=== PATIENT | male | born 1945 | race Caucasian/White ===

== ENCOUNTER 2025-05-30 08:58 | Inpatient (IN) | payer OTHER, MEDICARE ==
[~2025-05-30] VITALS: Ht 182.9 cm; Wt 89.1 kg
--- NOTE | 2025-05-30 09:40 | ED.PDOC ---
Musculoskeletal HPI Comments 79 y/o M, presents to the ED for CC of right knee pain. Patient states, he has been experiencing right knee pain with associated swelling x4days. Patient reports, to have a prior right knee injury in the 1979' however, has never had symptoms up until now. Patient relays, that he has been unable to bear weight onto his right extremity d/t pain. Patient denies trauma, injury, fall, fever, numbness, or tingling. No other symptoms or modifying factors are present at this time. Chief Complaint: Lower Extremity Time Seen by MD: 09:30 Reviewed Notes: Nurses Notes, Medications, Allergies Allergies: Coded Allergies: NO KNOWN ALLERGIES (Unverified , 05/30/25) Information Source: Patient Mode of Arrival: Wheelchair Location: Right Extremity Location: Knee Timing: Days Prehospital treatment: None Severity: Moderate Able to Move Extremity: Yes Bear Weight: No Pain: Moderate Mechanism: Spontaneous Circumstances: Spontaneous Onset of Symptoms: Spontaneous Symptoms: Swelling, Pain DVT Risk Factors: NONE Last Tetanus: Unknown Associated signs and symptoms: Knee pain Past Medical History PAST MEDICAL HISTORY: Cancer Surgical History (Other): colostomy Family History Family History: Unknown Social History Smoker: Non-Smoker Alcohol: Denies ETOH Use Drugs: Denies Drug Use Lives In: Home Constitutional: denies: chills, diaphoresis, fatigue, fever, malaise, sweats, weakness, others EENTM: denies: blurred vision, double vision, ear bleeding, ear discharge, ear drainage, ear pain, ear ringing, eye pain, eye redness, hearing loss, mouth pain, mouth swelling, nasal discharge, nose bleeding, nose congestion, nose pain, photophobia, tearing, throat pain, throat swelling, voice changes, others Respiratory: denies: cough, hemoptysis, orthopnea, SOB at rest, shortness of breath, SOB with excertion, stridor, wheezing, others Cardiovascular: denies: chest pain, dizzy spells, diaphoresis, Dyspnea on exertion, edema, irregular heart beat, left arm pain, lightheadedness, palpitations, PND, syncope, others Gastrointestinal: denies: abdomen distended, abdominal pain, blood streaked bowels, constipated, diarrhea, dysphagia, difficulty swallowing, hematemesis, melena, nausea, poor appetite, poor fluid intake, rectal bleeding, rectal pain, vomiting, others Genitourinary: denies: burning, dysuria, flank pain, frequency, hematuria, incontinence, penile discharge, penile sore, pain, testicle pain, testicle swelling, urgency, others Neurological: denies: dizziness, fainting, headache, left sided numbness, left sided weakness, numbness, paresthesia, pre-existing deficit, right sided numbness, right sided weakness, seizure, speech problems, tingling, tremors, weakness, others Musculoskeletal: reports: others (right knee pain/right knee swelling); denies: back pain, gout, joint pain, joint swelling, muscle pain, muscle stiffness, neck pain Integumetry: denies: bruises, change in color, change in hair/nails, dryness, laceration, lesions, lumps, rash, wounds, others Allergic/Immunocompromised: denies: Difficulty Healing, Frequent Infections, Hives, Itching, others Hematologic/Lymphatic: denies: anemia, blood clots, easy bleeding, easy bruising, swollen glands, others Endocrine: denies: excessive hunger, excessive sweating, excessive thirst, excessive urination, flushing, intolerance to cold, intolerance to heat, unexplained weight gain, unexplained weight loss, others Psychiatric: denies: anxiety, bipolar disorder, depression, hopeless, panic disorder, schizophrenia, sleepless, suicidal, others All Other Systems: Reviewed and Negative Physical Exam General Appearance: Moderate Distress HEENT: Normal ENT Inspection, Pharynx Normal, TMs Normal Neck: Full Range of Motion, Non-Tender, Normal, Normal Inspection Respiratory: Chest Non-Tender, Lungs Clear, No Accessory Muscle Use, No Respiratory Distress, Normal Breath Sounds Cardiovascular: No Edema, No JVD, No Murmur, No Gallop, Normal Peripheral Pulses, Regular Rate/Rhythm Breast Exam: Deferred Gastrointestinal: No Organomegaly, Non Tender, No Pulsatile Mass, Normal Bowel Sounds, Soft Genitalia: Deferred Pelvic: Deferred Rectal: Deferred Extremities: No calf tenderness, No pedal edema, Swelling (Right knee) Musculoskeletal : Apperance: Normal Neurologic: Alert, No Motor Deficits, No Sensory Deficits Cerebellar Function: NOT DONE Reflexes: NOT DONE Skin: Dry, Normal Color, Warm Peripheral Pulses: 3+ Radial (R), 3+ Radial (L) Lymphatic: No Adenopathy Was a procedure done? Was a procedure done?: No Differential Diagnosis EXT Differential Diagnosis: Cellulitis, Fracture, Sprain, Dislocation X-Ray, Labs, Meds, VS Vital Signs Date Time Temp Pulse Resp B/P (MAP) Pulse Ox O2 Delivery O2 Flow Rate FiO2 05/30/25 13:05 97.9 66 16 131/54 (79) 98 97.9 05/30/25 13:05 66 16 98 Room Air 05/30/25 08:59 97.7 87 18 144/75 98 97.7 Lab Test 05/30/25 10:09 05/30/25 09:41 Range/Units Urine Color Yellow Yellow Urine Clarity Turbid H Clear Urine pH 5.5 5.0-9.0 Urine Specific [place] 1.030 1.001-1.035 Urine Protein 1+ H Negative Urine Ketones Trace Negative Urine Blood Negative Negative /uL Urine Nitrite Negative Negative Urine Bilirubin 1+ Negative Urine Urobilinogen 2 H Negative mg/dL Urine Leukocyte Esterase Negative Negative /uL Urine RBC 3 0 - 3 /hpf Urine Microscopic WBC 7 H 0-3 /HPF Urine Squamous Epithelial Cells Few <5 /hpf Urine Bacteria Few H None Seen /hpf Urine Hyaline Casts Many 0 - 2 /lpf Urine Mucus Few None Seen Urine Glucose Trace Normal mg/dL White Blood Count 10.5 4.4-10.8 10^3/uL Red Blood Count 4.05 L 4.5-5.90 10^6/uL Hemoglobin 13.2 L 13.5-17.5 g/dL Hematocrit 37.7 L 41.0-53.0 % Mean Corpuscular Volume 93.2 80.0-100.0 fL Mean Corpuscular Hemoglobin 32.5 H 28.0-32.0 pg Mean Corpuscular Hemoglobin Concent 34.9 32.0-36.0 g/dL Red Cell Distribution Width 13.4 11.8-14.3 % Platelet Count 252 140-450 10^3/uL Mean Platelet Volume 8.7 6.9-10.8 fL Neutrophils (%) (Auto) 77.7 37.0-80.0 % Lymphocytes (%) (Auto) 8.8 L 10.0-50.0 % Monocytes (%) (Auto) 12.9 H 0.0-12.0 % Eosinophils (%) (Auto) 0.3 0.0-7.0 % Basophils (%) (Auto) 0.3 0.0-2.0 % Neutrophils # (Auto) 8.2 1.6-8.6 10 ^3/uL Lymphocytes # (Auto) 0.9 0.4-5.4 10 ^3/uL Monocytes # (Auto) 1.3 0-1.3 10 ^3/uL Eosinophils # (Auto) 0 0-0.8 10 ^3/uL Basophils # (Auto) 0 0-0.2 10 ^3/uL Nucleated Red Blood Cells 0.0 % Sodium Level 137 136-145 mmol/L Potassium Level 3.3 L 3.5-5.1 mmol/L Chloride Level 107 98-107 mmol/L Carbon Dioxide Level 21 20-31 mmol/L Anion Gap 9 5-15 Blood Urea Nitrogen 19 9-23 mg/dL Creatinine 1.30 0.700-1.30 mg/dL Glomerular Filtration Rate Calc 57 >90 mL/min BUN/Creatinine Ratio 14.6 10.0-20.0 Serum Glucose 217 H 74-106 mg/dL Calcium Level 8.9 8.7-10.4 mg/dL Current Medications Medications (Trade) Dose Ordered Sig/Renny Route Start Time Stop Time Status Last Admin Sodium Chloride 1,000 ml @ 1,000 mls/hr Q1H ONCE IV 05/30/25 09:45 05/30/25 10:44 DC 05/30/25 10:05 Acetaminophen/ Hydrocodone Bitart ([place] 10/325MG Tab) 1 tab ONCE ONCE PO 05/30/25 09:45 05/30/25 09:46 DC 05/30/25 10:08 [place] [id number] Ph: [phone] DIAGNOSTIC IMAGING Diagnostic Imaging Report : [id number] Signed PATIENT: VALERIA BATES ACCT: [id number] UNIT: [id number] : 1945 LOC: ER ROOM / BED: / AGE / SEX: 79 / M ADM STATUS: REG ER SERVICE 0934 ORDERING PHYSICIAN: ELLEN SCHNEIDER MD PROCEDURE(s): RKNCT - CT R KNEE WO CONTRAST REASON: [email or web address] ORDER NUMBER(s): [id number], ACCESSION NUMBER(s): [id number] CLINICAL INFORMATION: Gout versus osteoarthritis. No other clinical information provided. TECHNIQUE: Axial CT images of the right knee were obtained without IV contrast. Coronal and sagittal reformatted images were obtained, reviewed, and stored. 3D reconstructed images were created at an independent workstation with concurrent physician supervision. All CT scans at this medical facility are performed using dose modulation techniques as appropriate to a performed exam including the following: Automated exposure control was utilized; adjustment of the MA and/or KV according to patient size; and use of iterative reconstruction technique. CTDIvol = 7.75 mGy DLP = 7.75 mGy-cm COMPARISON: None FINDINGS: No evidence of acute fracture. Severe joint space narrowing in the medial compartment with associated subchondral sclerosis and marginal osteophytes. Moderate joint space narrowing in the lateral and patellofemoral compartments with associated marginal osteophytes. There is chondrocalcinosis in the lateral compartment. There is also calcification posterior to the medial tibial plateau and in the suprapatellar recess. Moderate fluid in the suprapat ellar recess. [id number] subcutaneous edema along the anterior aspect of the knee. Popliteal cyst measures up to 8.7 cm in greatest proximal to distal dimension. There is edema and fluid along the distal aspect of the cyst and coursing along adjacent fascial planes, possibly leakage of fluid from the cyst. Dense arterial calcification is seen. IMPRESSION: 1. No evidence of acute bony abnormality. 2. Arthritic changes as described above, may be due to osteoarthritis. Chondrocalcinosis may be seen with osteoarthritis or CPPD. Correlate with clinical findings. No visualized erosive changes. 3. Moderate fluid in the suprapatellar recess, may be due to nonspecific inflammation. There is calcification within the suprapatellar recess, may be seen with CPPD. 4. Popliteal cyst with evidence of leakage of fluid from the cyst along its ATED BY: ALEJANDRO ESQUIVEL DO DICTATED DATE/TIME: 05/30/25 1026 SIGNED BY: ALEJANDRO ESQUIVEL DO SIGNED DATE/TIME: 05/30/25 1026 CC: Patient alert. Complaining of right knee pain. CT of the knee does show osteoarthritis. Vitals stable. Answering questions. Unable to ambulate. Was given pain medication. Explained to the patient that he will be admitted for further studies. Continue monitoring. Time of 1ST Reevaluation: 10:00 Reevaluation 1ST: Unchanged Patient Education/Counseling: Diagnosis, Treatment Family Education/Counseling: No Family Present Departure 1 Departure Time of Disposition: 13:45 Impression: Primary Impression: Osteoarthritis Qualified Codes: M17.11 - Unilateral primary osteoarthritis, right knee Disposition: ADMITTED INPATIENT Admit to: Med Surg Condition: Guarded Critical Care Note Critical Care Time?: No Stability Stability form required: No Heart Score Heart Score: Heart Score Response (Comments) Value History N/A 0 EKG N/A 0 Age N/A 0 Risk Factors N/A 0 Troponin N/A 0 Total 0 I personally scribed for ELLEN SCHNEIDER MD ([email or web address]) on 05/30/25 at 09:40. Electronically submitted by Nathalie Rose ([email or web address]). I personally scribed for ELLEN SCHNEIDER MD ([email or web address]) on 05/30/25 at 10:55. Electronically submitted by Nathalie Rose ([email or web address]). ELLNE SCHNEIDER MD May 30, 2025 09:40
[2025-05-30 10:00] LABS: Hematocrit 37.7 % (41.0-53.0); Hemoglobin 13.2 g/dL (13.5-17.5); Mean Corpuscular Hemoglobin 32.5 pg (28.0-32.0); Mean Corpuscular Volume 93.2 fL (80.0-100.0); Nucleated Red Blood Cells % 0.0 %
[2025-05-30] MEDS: SODIUM CHLORIDE 0.9% 1,000 ML IV ONE (10:05)
[2025-05-30] MEDS: HYDROcodone-ACET 10/325MG TAB PO ONE (10:08)
[2025-05-30 10:10] LABS: Anion Gap 9 (5-15); Carbon Dioxide 21 mmol/L (20-31); Sodium 137 mmol/L (136-145)
[2025-05-30 10:11] LABS: Calcium 8.9 mg/dL (8.7-10.4)
[2025-05-30 10:12] LABS: Chloride 107 mmol/L (98-107); Potassium 3.3 mmol/L (3.5-5.1)
[2025-05-30 10:16] LABS: BUN/Creatinine Ratio 14.6 (10.0-20.0); Blood Urea Nitrogen 19 mg/dL (9-23); Glucose 217 mg/dL (74-106)
--- NOTE | 2025-05-30 10:28 | DVH ---
CLINICAL INFORMATION: Gout versus osteoarthritis. No other clinical information provided. TECHNIQUE: Axial CT images of the right knee were obtained without IV contrast. Coronal and sagittal reformatted images were obtained, reviewed, and stored. 3D reconstructed images were created at an in dependent workstation with concurrent physician supervision. All CT scans at this medical facility ar e performed using dose modulation techniques as appropriate to a performed exam including the followi ng: Automated exposure control was utilized; adjustment of the MA and/or KV according to patient size ; and use of iterative reconstruction technique. CTDIvol = 7.75 mGy DLP = 7.75 mGy-cm COMPARISON: None FINDINGS: No evidence of acute fracture. Severe joint space narrowing in the medial compartment with associated subchondral sclerosis and marginal osteophytes. Moderate joint space narrowing in the late ral and patellofemoral compartments with associated marginal osteophytes. There is chondrocalcinosis in the lateral compartment. There is also calcification posterior to the medial tibial plateau and in the suprapatellar recess. Moderate fluid in the suprapatellar recess. Axau-iu-bblfxxba subcutaneous edema along the anterior aspect of the knee. Popliteal cyst measures up to 8.7 cm in greatest proxima l to distal dimension. There is edema and fluid along the distal aspect of the cyst and coursing rodri g adjacent fascial planes, possibly leakage of fluid from the cyst. Dense arterial calcification is s een. IMPRESSION: 1. No evidence of acute bony abnormality. 2. Arthritic changes as described above, may be due to osteoarthritis. Chondrocalcinosis may be seen with osteoarthritis or CPPD. Correlate with clinical findings. No visualized erosive changes. 3. Moderate fluid in the suprapatellar recess, may be due to nonspecific inflammation. There is calci fication within the suprapatellar recess, may be seen with CPPD. 4. Popliteal cyst with evidence of leakage of fluid from the cyst along its
[2025-05-30 13:58] LABS: Urine Protein, UAD 1+ (Negative)
[2025-05-30] MEDS ORDERED: ONDANSETRON HCL 4 MG/2 ML VIAL IV PRN (20:30)
[2025-05-30] MEDS ORDERED: TEMAZEPAM 15 MG CAP PO PRN (20:30)
[2025-05-30] MEDS ORDERED: ACETAMINOPHEN 325 MG TAB PO PRN (20:30)
--- NOTE | 2025-05-30 20:31 | DVHHP2 ---
History of Present Illness Reason for Visit: Right knee pain History of Present Illness 79 presents for evaluation of right knee pain. Patient reports having knee surgery approximately 40 years ago. He reports not having any issues since the surgery. Four days ago he started noticing swelling and tenderness. Today the symptoms became worse he is unable to maintenance knee he also reports intermittent chills. Denies any trauma to the area. No other acute complaints reported. Past Medical History Cancer Past Surgical History Right knee surgery, colostomy Family History Noncontributory Smoke: No ALCOHOL: none Drugs: None Lives: with Family Review of Systems Review of Systems Review of systems are currently negative otherwise addressed in HPI Allergies: Coded Allergies: NO KNOWN ALLERGIES (Unverified , 05/30/25) Exam Vital Signs Vital Signs Date Time Temp Pulse Resp B/P (MAP) Pulse Ox O2 Delivery O2 Flow Rate FiO2 05/30/25 18:46 98.5 62 20 115/84 (94) 97 98.5 05/30/25 13:05 Room Air Exam Gen: 79-year-old male Skin: Warm, dry, normal color and texture, no rash. HEENT: Normocephalic atraumatic, mucous membranes moist and pink. Neck: Cervical and supraclavicular nodes normal without enlargement, trachea is midline, thyroid gland is normal without masses. Pulmonary: Clear to auscultation and percussion bilaterally. Cardiac: Regular rate and rhythm. No murmur Abdomen: Soft, nontender, nondistended, bowel sounds present all 4 quadrants, no guarding, no rigidity, no organomegaly. Extremities: No cyanosis, clubbing, right knee swelling/erythema and tenderness Neuro: Cranial nerves II through XII grossly intact, normal affect and speech, no focal motor deficits. Labs/Xrays ORDERING PHYSICIAN: ELLEN SCHNEIDER MD PROCEDURE(s): RKNCT - CT R KNEE WO CONTRAST REASON: [email or web address] ORDER NUMBER(s): [id number], ACCESSION NUMBER(s): [id number] CLINICAL INFORMATION: Gout versus osteoarthritis. No other clinical information provided. TECHNIQUE: Axial CT images of the right knee were obtained without IV contrast. Coronal and sagittal reformatted images were obtained, reviewed, and stored. 3D reconstructed images were created at an independent workstation with concurrent physician supervision. All CT scans at this medical facility are performed using dose modulation techniques as appropriate to a performed exam including the following: Automated exposure control was utilized; adjustment of the MA and/or KV according to patient size; and use of iterative reconstruction technique. CTDIvol = 7.75 mGy DLP = 7.75 mGy-cm COMPARISON: None FINDINGS: No evidence of acute fracture. Severe joint space narrowing in the medial compartment with associated subchondral sclerosis and marginal osteophytes. Moderate joint space narrowing in the lateral and patellofemoral compartments with associated marginal osteophytes. There is chondrocalcinosis in the lateral compartment. There is also calcification posterior to the medial tibial plateau and in the suprapatellar recess. Moderate fluid in the suprapatellar recess. Qtek-fe-kkefvffh subcutaneous edema along the anterior aspect of the knee. Popliteal cyst measures up to 8.7 cm in greatest proximal to distal dimension. There is edema and fluid along the distal aspect of the cyst and coursing along adjacent fascial planes, possibly leakage of fluid from the cyst. Dense arterial calcification is seen. IMPRESSION: 1. No evidence of acute bony abnormality. 2. Arthritic changes as described above, may be due to osteoarthritis. Chondroca lcinosis may be seen with osteoarthritis or CPPD. Correlate with clinical findings. No visualized erosive changes. 3. Moderate fluid in the suprapatellar recess, may be due to nonspecific inflammation. There is calcification within the suprapatellar recess, may be seen with CPPD. 4. Popliteal cyst with evidence of leakage of fluid from the cyst along its Labs Test 05/30/25 10:09 05/30/25 09:41 Range/Units Urine Color Yellow Yellow Urine Clarity Turbid H Clear Urine pH 5.5 5.0-9.0 Urine Specific [place] 1.030 1.001-1.035 Urine Protein 1+ H Negative Urine Ketones Trace Negative Urine Blood Negative Negative /uL Urine Nitrite Negative Negative Urine Bilirubin 1+ Negative Urine Urobilinogen 2 H Negative mg/dL Urine Leukocyte Esterase Negative Negative /uL Urine RBC 3 0 - 3 /hpf Urine Microscopic WBC 7 H 0-3 /HPF Urine Squamous Epithelial Cells Few <5 /hpf Urine Bacteria Few H None Seen /hpf Urine Hyaline Casts Many 0 - 2 /lpf Urine Mucus Few None Seen Urine Glucose Trace Normal mg/dL White Blood Count 10.5 4.4-10.8 10^3/uL Red Blood Count 4.05 L 4.5-5.90 10^6/uL Hemoglobin 13.2 L 13.5-17.5 g/dL Hematocrit 37.7 L 41.0-53.0 % Mean Corpuscular Volume 93.2 80.0-100.0 fL Mean Corpuscular Hemoglobin 32.5 H 28.0-32.0 pg Mean Corpuscular Hemoglobin Concent 34.9 32.0-36.0 g/dL Red Cell Distribution Width 13.4 11.8-14.3 % Platelet Count 252 140-450 10^3/uL Mean Platelet Volume 8.7 6.9-10.8 fL Neutrophils (%) (Auto) 77.7 37.0-80.0 % Lymphocytes (%) (Auto) 8.8 L 10.0-50.0 % Monocytes (%) (Auto) 12.9 H 0.0-12.0 % Eosinophils (%) (Auto) 0.3 0.0-7.0 % Basophils (%) (Auto) 0.3 0.0-2.0 % Neutrophils # (Auto) 8.2 1.6-8.6 10 ^3/uL Lymphocytes # (Auto) 0.9 0.4-5.4 10 ^3/uL Monocytes # (Auto) 1.3 0-1.3 10 ^3/uL Eosinophils # (Auto) 0 0-0.8 10 ^3/uL Basophils # (Auto) 0 0-0.2 10 ^3/uL Nucleated Red Blood Cells 0.0 % Sodium Level 137 136-145 mmol/L Potassium Level 3.3 L 3.5-5.1 mmol/L Chloride Level 107 98-107 mmol/L Carbon Dioxide Level 21 20-31 mmol/L Anion Gap 9 5-15 Blood Urea Nitrogen 19 9-23 mg/dL Creatinine 1.30 0.700-1.30 mg/dL Glomerular Filtration Rate Calc 57 >90 mL/min BUN/Creatinine Ratio 14.6 10.0-20.0 Serum Glucose 217 H 74-106 mg/dL Calcium Level 8.9 8.7-10.4 mg/dL SEPSIS Sepsis Screen Date sepsis recognized/suspect: May 30, 2025 Time Sepsis recognized/suspect: 1847 Recent Procedure: No On Antibiotic Therapy: No Respiratory Rate >20: No Heart Rate >90: No Temp<36 C (96.8 F) or >38.3 C: No SBP <90 or MAP <65 mmHG: No New Acute Mental Status Change: No Is the patient on CPAP, BIPAP,: No Vital Signs Date Time Temp Pulse Resp B/P (MAP) Pulse Ox O2 Delivery O2 Flow Rate FiO2 05/30/25 18:46 98.5 62 20 115/84 (94) 97 98.5 05/30/25 13:05 97.9 66 16 131/54 (79) 98 97.9 05/30/25 13:05 66 16 98 Room Air Laboratory Tests Test 05/30/25 09:41 White Blood Count 10.5 10^3/uL (4.4-10.8) Medications Medications Dose Ordered Sig/Renny Route Start Time Stop Time Status Last Admin Dose Admin Acetaminophen/ Hydrocodone Bitart 1 tab ONCE ONCE PO 05/30/25 09:45 05/30/25 09:46 DC 05/30/25 10:08 1 TAB Sodium Chloride 1,000 ml @ 1,000 mls/hr Q1H ONCE IV 05/30/25 09:45 05/30/25 10:44 DC 05/30/25 10:05 1,000 MLS/HR Assessment/Plan Assessment/Plan Assessment Right knee bursitis Hypokalemia Status post colostomy Plan Admit the patient to [facility] to the hospitalist Orthopedic consult Clindamycin Pain management Continue treatment per orders. Plan discussed with: Patient Date of Service: May 30, 2025 Billing Provider: JOSSE ELKINS Common Visit Codes: [id number] INP/OBS CARE (MOD) JOSSE ELKINS May 30, 2025 20:31
[2025-05-30 22:00] VITALS: BP 158/84; PULSE 74; RESP 18; TEMP 97.7; O2SAT 96
[2025-05-30 23:00] VITALS: BP 145/75; PULSE 77; RESP 18; TEMP 97.9; O2SAT 96
[2025-05-30] MEDS: CLINDAMYCIN 600MG IV 50 ML IV SCH (23:20)
[2025-05-31 01:00] VITALS: BP 145/77; PULSE 77; RESP 18; TEMP 97.9; O2SAT 96
[2025-05-31] MEDS ORDERED: TERA10CA36 PO (03:03)
[2025-05-31 07:30] VITALS: PULSE 83; RESP 16; O2SAT 97
[2025-05-31 07:49] LABS: Hematocrit 32.2 % (41.0-53.0); Hemoglobin 11.3 g/dL (13.5-17.5); Mean Corpuscular Hemoglobin 32.3 pg (28.0-32.0); Mean Corpuscular Volume 91.6 fL (80.0-100.0); Nucleated Red Blood Cells % 0.0 %
[2025-05-31 07:56] LABS: Sodium 140 mmol/L (136-145)
[2025-05-31 07:57] LABS: Anion Gap 8 (5-15); Carbon Dioxide 21 mmol/L (20-31)
[2025-05-31 08:00] LABS: Calcium 8.3 mg/dL (8.7-10.4); Chloride 111 mmol/L (98-107); Potassium 3.3 mmol/L (3.5-5.1)
[2025-05-31 08:02] LABS: BUN/Creatinine Ratio 18.6 (10.0-20.0); Blood Urea Nitrogen 21 mg/dL (9-23); Glucose 134 mg/dL (74-106)
[2025-05-31] MEDS: HYDROcodone-ACET 5/325MG TAB PO PRN (08:55)
[2025-05-31 09:00] VITALS: BP 149/89; PULSE 75; RESP 18; TEMP 97.8; O2SAT 99
[2025-05-31] MEDS: KETOROLAC TROMETH 30 MG/ML 1ML VIAL IV PRN (11:52)
--- NOTE | 2025-05-31 12:34 | DVHPN2 ---
Objective Vitals Vital Signs Date Time Temp Pulse Resp B/P (MAP) Pulse Ox O2 Delivery O2 Flow Rate FiO2 05/31/25 09:00 97.8 75 18 149/89 (109) 99 97.8 05/31/25 07:30 Room Air* 0 21 Intake/Output Intake and Output 05/31/25 07:00 Intake Total 1000 ml Balance 1000 ml Intake Oral 0 ml IV Total 1000 ml Medications Current Medications Medications Dose Ordered Sig/Renny Route Start Time Stop Time Status Last Admin Dose Admin Ketorolac Tromethamine 15 mg Q6HPRN PRN IV 05/30/25 20:30 06/04/25 20:29 05/31/25 11:52 15 MG Acetaminophen/ Hydrocodone Bitart 1 tab Q4HP PRN PO 05/30/25 20:30 05/31/25 08:55 1 TAB Temazepam 15 mg QHSP PRN PO 05/30/25 20:30 Ondansetron HCl 4 mg Q4HP PRN IV 05/30/25 20:30 Acetaminophen 650 mg Q6HP PRN PO 05/30/25 20:30 Clindamycin Phosphate 50 ml @ 50 mls/hr Q8HR IV 05/30/25 22:00 05/31/25 05:53 50 MLS/HR Laboratory Results Laboratory Tests 05/31/25 07:07 Chemistry Test 05/31/25 07:07 Calcium Level 8.3 mg/dL (8.7-10.4) L Urinalysis Test 05/30/25 10:09 Urine Color Yellow (Yellow) Urine Clarity Turbid (Clear) H Urine pH 5.5 (5.0-9.0) Urine Specific [place] 1.030 (1.001-1.035) Urine Protein 1+ (Negative) H Urine Ketones Trace (Negative) Urine Blood Negative /uL (Negative) Urine Nitrite Negative (Negative) Urine Bilirubin 1+ (Negative) Urine Urobilinogen 2 mg/dL (Negative) H Urine Leukocyte Esterase Negative /uL (Negative) Urine RBC 3 /hpf (0 - 3) Urine Microscopic WBC 7 /HPF (0-3) H Urine Squamous Epithelial Cells Few /hpf (<5) Urine Bacteria Few /hpf (None Seen) H Urine Hyaline Casts Many /lpf (0 - 2) Urine Mucus Few (None Seen) Urine Glucose Trace mg/dL (Normal) ALVIN ALFARO MD May 31, 2025 12:34
[2025-05-31 13:00] VITALS: BP 164/99; PULSE 79; RESP 18; TEMP 97.1; O2SAT 94
[2025-05-31] MEDS ORDERED: hydrALAZINE HCL 20 MG/ML VL IV PRN (14:00)
[2025-05-31 16:26] VITALS: BP 129/80; PULSE 67; RESP 20; TEMP 98.1; O2SAT 97
--- NOTE | 2025-06-01 00:04 | DVHDS2 ---
Discharge Summary Date of Admission May 30, 2025 at 20:21 Date of Discharge: May 31, 2025 Labs/Diagnostic Data: Laboratory Results Test 05/31/25 07:07 05/30/25 10:09 White Blood Count 8.5 10^3/uL (4.4-10.8) Red Blood Count 3.51 10^6/uL (4.5-5.90) Hemoglobin 11.3 g/dL (13.5-17.5) Hematocrit 32.2 % (41.0-53.0) Mean Corpuscular Volume 91.6 fL (80.0-100.0) Mean Corpuscular Hemoglobin 32.3 pg (28.0-32.0) Mean Corpuscular Hemoglobin Concent 35.2 g/dL (32.0-36.0) Red Cell Distribution Width 13.2 % (11.8-14.3) Platelet Count 235 10^3/uL (140-450) Mean Platelet Volume 8.5 fL (6.9-10.8) Neutrophils (%) (Auto) 70.1 % (37.0-80.0) Lymphocytes (%) (Auto) 15.4 % (10.0-50.0) Monocytes (%) (Auto) 12.5 % (0.0-12.0) Eosinophils (%) (Auto) 1.5 % (0.0-7.0) Basophils (%) (Auto) 0.5 % (0.0-2.0) Neutrophils # (Auto) 5.9 10 ^3/uL (1.6-8.6) Lymphocytes # (Auto) 1.3 10 ^3/uL (0.4-5.4) Monocytes # (Auto) 1.1 10 ^3/uL (0-1.3) Eosinophils # (Auto) 0.1 10 ^3/uL (0-0.8) Basophils # (Auto) 0 10 ^3/uL (0-0.2) Nucleated Red Blood Cells 0.0 % Sodium Level 140 mmol/L (136-145) Potassium Level 3.3 mmol/L (3.5-5.1) Chloride Level 111 mmol/L (98-107) Carbon Dioxide Level 21 mmol/L (20-31) Anion Gap 8 (5-15) Blood Urea Nitrogen 21 mg/dL (9-23) Creatinine 1.13 mg/dL (0.700-1.30) Glomerular Filtration Rate Calc 67 mL/min (>90) BUN/Creatinine Ratio 18.6 (10.0-20.0) Serum Glucose 134 mg/dL (74-106) Calcium Level 8.3 mg/dL (8.7-10.4) Urine Color Yellow (Yellow) Urine Clarity Turbid (Clear) Urine pH 5.5 (5.0-9.0) Urine Specific [place] 1.030 (1.001-1.035) Urine Protein 1+ (Negative) Urine Ketones Trace (Negative) Urine Blood Negative /uL (Negative) Urine Nitrite Negative (Negative) Urine Bilirubin 1+ (Negative) Urine Urobilinogen 2 mg/dL (Negative) Urine Leukocyte Esterase Negative /uL (Negative) Urine RBC 3 /hpf (0 - 3) Urine Microscopic WBC 7 /HPF (0-3) Urine Squamous Epithelial Cells Few /hpf (<5) Urine Bacteria Few /hpf (None Seen) Urine Hyaline Casts Many /lpf (0 - 2) Urine Mucus Few (None Seen) Urine Glucose Trace mg/dL (Normal) Other Laboratory Tests 05/31/25 07:07 Discharge Disposition: AMA Discharge Instruct/Medications Scheduled Terazosin Hcl (Terazosin Hcl), 1 CAP PO DAILY, (Reported) Discharge Statement: "Patient was advised to return to the ER or call 911 if any headaches, dizziness, shortness of breath, chest pain, abdominal pain, bleeding, fevers, or worsening of medical condition. Patient was counseled about treatment plan, medications, possible side effects, patientverbalized understanding. All questions were answered to the best of my ability. This discharge took greater then 30 minutes in planning, reviewing documentation, counseling the patient, and discussing with other team members." ASSESSMENT ASSESSMENT Assessment ALVIN ALFARO MD Jun 01, 2025 00:04
== END 2025-05-31 16:45 | disposition left against medical advice (07) | DRG 558 ==
LOC: ER 08:58 → OVERFLOW 20:21 → WEST WING 21:30
PROVIDERS: ADMIT Internal Medicine; ATTEND Internal Medicine
DX: M70.51 Other bursitis of knee, right knee (principal); E87.6 Hypokalemia; M19.09 Primary osteoarthritis, other specified site; Z53.29 Procedure and treatment not carried out because of patient's decision for other reasons; Z93.3 Colostomy status; Z79.899 Other long term (current) drug therapy
CPT/HCPCS: 36415; 73700; 80048; 81001; 85025; G0378; J1885; J3490